=== PATIENT | female | born 1985 | race Caucasian/White ===

== ENCOUNTER → 2024-06-06 07:52 | Outpatient (REF) | payer BC, SELFPAY | LOC: PNTC 07:52 | PROVIDERS: ATTENDING PHYSICIAN Obstetrics & Gynecology | DX: O09.529 Supervision of elderly multigravida, unspecified trimester (principal) | CPT/HCPCS: 76805; 93976 ==

== ENCOUNTER → 2024-07-03 10:54 | Outpatient (REF) | payer BC, SELFPAY | LOC: PNTC 10:54 | PROVIDERS: ATTENDING PHYSICIAN Obstetrics & Gynecology | DX: O09.529 Supervision of elderly multigravida, unspecified trimester (principal); O43.219 Placenta accreta, unspecified trimester | CPT/HCPCS: 76811; 93976 ==

== ENCOUNTER → 2024-08-07 10:16 | Outpatient (REF) | payer BC, SELFPAY | LOC: PNTC 10:16 | PROVIDERS: ATTENDING PHYSICIAN Obstetrics & Gynecology | DX: O09.519 Supervision of elderly primigravida, unspecified trimester (principal) | CPT/HCPCS: 76816; 93976 ==

== ENCOUNTER → 2024-10-02 08:00 | Outpatient (REF) | payer BC, SELFPAY | LOC: PNTC 08:00 | PROVIDERS: ATTENDING PHYSICIAN Obstetrics & Gynecology | DX: O09.529 Supervision of elderly multigravida, unspecified trimester (principal); O43.219 Placenta accreta, unspecified trimester | CPT/HCPCS: 76816; 93976 ==

== ENCOUNTER 2024-10-28 21:14 | Inpatient (IN) | payer BC, SELFPAY ==
[2024-10-28 21:35] VITALS: BP 112/59
[2024-10-28 21:41] LABS: Hematocrit 33.2 % (37.0-47.0); Hemoglobin 11.6 g/dL (12.0-16.0); Mean Corp Hgb Conc. 34.9 g/dL (33.0-37.0); Mean Corpuscular Hgb 30.1 pg (27.0-31.0); Mean Platelet Volume 10.4 fL (7.4-10.4); Platelet Count 249 10^3/uL (130-400); Red Blood Cell Count 3.86 10^6/uL (4.20-5.40); Red Cell Dist. Width 13.8 % (11.5-14.5); White Blood Cell Count 16.8 10^3/uL (4.8-10.8)
[2024-10-28] MEDS: LR 1000 IV (21:45)
--- NOTE | 2024-10-28 22:07 | HPS.HSE ---
Family Physician
-
Family Physician: Isabela Barron
Chief Complaint
-
leakage of fluid
History of Present Illness
Patient is a 39yo @36.5 who presents with complaints of leakage of fluid at 1915. She reports contractions starting after every 5 minutes.
complications:
- Advanced maternal age
- Obesity BMI 31
- Hx C/Sx1, desires repeat
- Desires permanent sterilization
PMHx: migraines, IBS
Meds: PNV
Surghx: C/Sx1
NKDA
Socialhx: denies tobacco, etoh or illicit drug use
Famhx: non-contributory
OBHx: C/Sx1, SABx1
labs: O+, Ab neg, Rubella immune, RPR non-reactive, UCx neg, HBsAg neg, HIV neg, GCCT neg, Hep C neg, A1C 5.5, GBS neg, 1hr 128
FHT: 140 baseline/moderate variability/+accelerations/no decelerations
[place]: ctx q2-10 min
Medical History
Past Medical History
Past Medical History: Reports Other
Additional Past Medical History:
migraines, IBS
Past Surgical History: Reports
Social History
Tobacco: Non-smoker
Alcohol: None
Drug: None
Family History
Family History: Not pertinent
Allergies / Home Medications
Allergies reflects when Allergies were last updated in [employer].
Home Medications with original date entered in [employer]
Allergy/Medication List:
NKDA
Meds: PNV
Review of Systems
-
A 12 point ROS was completed and negative except as noted: Yes
Physical Exam
Vital Signs
Vital Signs
Temp Pulse Resp BP Pulse Ox
98.9 F 90 18 112/59 99
05/25 21:35 10/28/24 21:35 10/28/24 21:35 10/28/24 21:35 10/28/24 21:35
Physical Exam
General: Well Developed and Well Nourished
HEENT: NormoCephalic
Respiratory: Non Labored Respirations
Cardiac: Regular Rhythm
GI: Other (gravid)
Genito-urinary: Other (grossly ruptured for clear fluid)
Skin: Warm and Dry
Neuro: Awake and Alert
Psych: Calm
Laboratory Results
-
10/28/24 21:35
Impression/Plan
-
IMPRESSION:
Patient is a 39yo @36.5 SROM, history of prior section, declines TOLAC, desires permanent sterilization
PLAN:
- Admission labs
- Patient declines TOLAC and desires RCS. Risks, benefits and alternatives discussed including bleeding, infection, damage to surrounding structures and need for future operations. Consents signed. Patient consented for blood transfusion
- Patient has completed her family status and desires permanent sterilization. Patient consented for bilateral salpingectomy. She is aware it will not performed if there is too much scar tissue. She is also aware it is a permanent procedure and she
will no longer be able to conceive children naturally
- 2g ancef and 500mg azithromycin ordered for antibiotic prophylaxis
- Anesthesia notified
[2024-10-28] MEDS: TYLENOL 1000 MG PO (22:23)
[2024-10-28] MEDS: ZITHROMAX INFUSION 250 IV (22:23)
[2024-10-28] MEDS: ANCEF 10 IV (22:23)
[2024-10-28] MEDS: BICITRA 30 ML PO (22:23)
[2024-10-29 01:56] VITALS: BP 112/80; BP 118/78
[2024-10-29 02:11] VITALS: BP 117/59
[2024-10-29 02:15] VITALS: BP 122/65
[2024-10-29] MEDS: DILAUDID 0.25 MG IV (02:17)
--- NOTE | 2024-10-29 02:26 | OR.RPT ---
Operative Report
Operative Report
Procedure date: 10/28/2024
Preop diagnosis: IUP @36.5, PPROM, prior C/Sx1, declines TOLAC, desires permanent sterilization
Postop diagnosis: same
Surgeon: Elizabeth
Procedure: Repeat low transverse section/bilateral salpingectomy
QBL: 765mL
Anesthesia: spinal/general- Dr. Breen
Findings: Viable female infant born at 2308, with Apgars 8/8. Normal appearing bilateral fallopian tubes and ovaries. Paratubal cyst on left ovary. Pooling of blood in the abdomen after replacement of the uterus. Uterus exteriorized and replaced
multiple times to identify source of bleeding. Hysterotomy and bilateral salpingectomy sites were hemostatic. Dr. Du called in to assist with bleeding. Patient was placed under general anesthesia as she was starting to get uncomfortable and to
allow patient to relax for better visualization. Area from the posterior left rectus muscle was bleeding and controlled with Bovie and figure of eights with 0 Vicryl. There was also an area inferior to the hysterotomy that was oozing and controlled
with figure of eights with 4-0 Vicryl. Bovie cautery was used on the vesicouterine serosa to help control bleeding. The bladder was back filled with methylene blue and was intact. Placenta and bilateral fallopian tubes sent to pathology. Patient
given 1g TXA at the conclusion of the procedure. Plan to check CBC @0600.
Ahumada catheter draining clear urine before the procedure and blue tinged urine after the procedure
Indication: Patient is a 39yo @36.5 who presented to labor and delivery with complaints of leakage of fluid. She was found to be grossly ruptured for clear fluid. She has a history of one prior section and declined TOLAC. She has
completed her family status and desires permanent sterilization. She is aware it is a permanent procedure and she will no longer be able to conceive children naturally. Risks, benefits, and alternatives were discussed and consents were signed.
Procedure: Patient was taken to the operating room where spinal anesthesia was administered and found to be adequate. 2g of Ancef and 500mg Azithromycin were given for infection prophylaxis. The abdomen was prepped with ChloraPrep. The patient was
draped in the normal sterile fashion. She was placed in the dorsal supine position with a left lateral tilt. A Pfannenstiel incision was made with a 10 blade and carried down to the fascia with a scalpel. Hemostasis achieved with Bovie. The fascia
was incised and dissected laterally with Woodall scissors. The superior aspect of the fascia was grasped with Christopher clamps. The underlying rectus fascia was sharply dissected with Woodall scissors. In a similar fashion the inferior aspect of the fascia
was elevated with Christopher clamps and the rectus muscle was dissected off with Woodall scissors. The rectus muscles were down the midline to the level of the pubic symphysis with manual dissection. The peritoneum was bluntly entered and
extended with manual traction.
Kelly retractor and bladder blade were placed revealing good visualization of the bladder. The vesicouterine peritoneum was identified. A thin lower uterine segment was noted. The lower uterine segment was incised with a scalpel. Clear amniotic
fluid noted at entry into the cavity. The uterine incision was extended bluntly with lateral and upward traction.
The fetus was in cephalic presentation. The head was brought to the hysterotomy. Gentle fundal pressure was applied and the head delivered. The rest of the body delivered without difficulty. Delayed cord clamping was performed. The infant was
handed off to the teletype or varitype keyboard operator. Cord blood and cord blood collection kit were collected. IV oxytocin was started to facilitate uterine contractions. The placenta was extracted with fundal massage and gentle traction. The uterus was exteriorized.
Allis clamps were placed at the apices of the hysterotomy. The inside of the uterus was wiped with a lap sponge to assure complete removal of placental membranes. Fundal massage was performed and uterus noted to be firm. The uterine incision was
closed with 0 Vicryl in a running locked fashion. A horizontal imbricating stitch was done on the hysterotomy. There was oozing from the center of the hysterotomy. Multiple figure of eights were placed to achieve hemostasis. The hysterotomy was
inspected and noted to be hemostatic. Attention was turned to the right fallopian tube. The right fallopian tube was followed out to the fimbriated end with [place]. The fallopian tube was removed in a stepwise fashion along the mesosalpinx using
the Voyant device. Hemostasis was noted at the salpingectomy site. The procedure was repeated on the left side and the left fallopian tube was removed using the Voyant device. Fallopian tubes were sent to pathology for evaluation. The uterus was
placed back in the abdomen. Blood clots and fluid were wiped out of the abdomen and pelvis with moist laparotomy sponges. The salpingectomy sites were inspected and noted to be hemostatic. The hysterotomy was examined again and was hemostatic.There
was pooling of bright red blood in front of the hysterotomy. When this was wiped away, it appeared the hysterotomy was hemostatic. The uterus was exteriorized again. Fluid and blood were removed from the posterior cul de sac. The posterior uterus
was inspected and no areas of bleeding noted. The gutters were also hemostatic. The uterus was placed back in the abdomen and there was pooling noted again. The rectus muscle was inspected and any oozing areas were cauterized with the Bovie. There
still appeared to be pooling of blood with no clear source of bleeding. Dr. Du was called in to assist. The patient was starting the get uncomfortable and was placed under general anesthesia. The uterus was exteriorized again and was
hemostatic. The salpingectomy sites were hemostatic. The uterus was placed back in the abdomen. An area of bleeding was noted on the posterior aspect of the left rectus muscle. Figure of eights were placed with 0 Vicryl to achieve hemostasis. It
appeared that the hysterotomy had also started oozing. A running locked stitch was placed to achieve hemostasis. There was also an area inferior to the hysterotomy that was raw appearing and oozing. Figure of eights with 4-0 Vicryl were placed.
Oozing on the vesicouterine peritoneum was controlled with Bovie cautery. The bladder was backfilled with methylene blue and was intact. The hysterotomy and abdomen were watched for several minutes and there appeared to be no further pooling of
blood.
The rectus muscles were inspected and any oozing areas were cauterized with the Bovie. The fascial layer was closed in a running continuous fashion using 0 Vicryl. The subcutaneous tissue was copiously irrigated and any small bleeding vessels were
cauterized with Bovie cautery. The subcutaneous tissue was reapproximated in a running continuous fashion with 2-0 Plain. The skin was closed with 4-0 Vicryl in a subcuticular fashion. The incision was covered with skin glue. The patient tolerated
the procedure well. Her vital signs were stable throughout the procedure. All sponge and instrument counts were correct times two. The patient was awakened from anesthesia and taken to PACU in stable condition. The procedure was discussed with the
at the conclusion. Plan to check CBC @0600.
[2024-10-29 02:30] VITALS: BP 120/64
[2024-10-29 02:39] VITALS: BP 107/58
[2024-10-29] MEDS: TORADOL 15 MG IV ×4 (05:47→23:58)
[2024-10-29 08:32] LABS: Hematocrit 31.1 % (37.0-47.0); Hemoglobin 10.8 g/dL (12.0-16.0); Mean Corp Hgb Conc. 34.7 g/dL (33.0-37.0); Mean Corpuscular Hgb 30.3 pg (27.0-31.0); Mean Corpuscular Volume 87.4 fL (81.0-99.0); Mean Platelet Volume 10.3 fL (7.4-10.4); Platelet Count 222 10^3/uL (130-400); Red Blood Cell Count 3.56 10^6/uL (4.20-5.40); Red Cell Dist. Width 13.7 % (11.5-14.5); White Blood Cell Count 23.6 10^3/uL (4.8-10.8)
[2024-10-29] MEDS: PRENATAL PLUS 1 TABLET PO (11:53)
--- NOTE | 2024-10-29 13:26 | W.PN.ANS.POP ---
Anesthesia Post Operative
- Anesthesia Post Op Note
Vital Signs Stable-See Nursing Note: Yes
Airway Patent: Yes
Adequate Pain Control: Yes
Change in Mental Status: No
Current Postoperative Nausea & Vomiting: No
Anesthesia Complications: No
General Anesthetic Recall: No
Unplanned Admission: No
Post Op Hydration Adequate: Yes
[2024-10-29] MEDS: TYLENOL 650 MG PO (20:40)
[2024-10-29] MEDS: MYLICON 80 MG PO (21:55)
[2024-10-29] MEDS: FLUSH (NSS) 3 FLUSH IV (23:59)
[2024-10-30] MEDS: TYLENOL 650 MG PO (00:40)
[2024-10-30] MEDS: MOTRIN 600 MG PO ×3 (06:20→19:54)
[2024-10-30] MEDS: PERCOCET 5/325 1 TABLET PO ×3 (06:21→19:53)
[2024-10-30 06:33] LABS: Hematocrit 30.4 % (37.0-47.0); Hemoglobin 10.2 g/dL (12.0-16.0); Mean Corp Hgb Conc. 33.6 g/dL (33.0-37.0); Mean Corpuscular Hgb 29.8 pg (27.0-31.0); Mean Corpuscular Volume 88.9 fL (81.0-99.0); Mean Platelet Volume 10.1 fL (7.4-10.4); Platelet Count 242 10^3/uL (130-400); Red Blood Cell Count 3.42 10^6/uL (4.20-5.40); Red Cell Dist. Width 14.2 % (11.5-14.5); White Blood Cell Count 14.4 10^3/uL (4.8-10.8)
[2024-10-30] MEDS: PRENATAL PLUS 1 TABLET PO (08:03)
[2024-10-30] MEDS: MYLICON 80 MG PO (08:03)
[2024-10-31] MEDS: PERCOCET 5/325 1 TABLET PO ×2 (02:19→08:57)
[2024-10-31] MEDS: MOTRIN 600 MG PO ×2 (02:19→08:52)
[2024-10-31] MEDS: SENOKOT-S 1 TABLET PO (08:52)
[2024-10-31] MEDS: PRENATAL PLUS 1 TABLET PO (08:52)
--- NOTE | 2024-10-31 08:57 | W.DS.TRANS ---
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
-
Discharge Instructions:
Discharge Diagnosis/Procedures section and bilateral salpingectomies
Instructions:
Stand-Alone Forms: LDRP Delivery
Changes to Home Medications: No
Discharge Medications:
DC Medications w/original date entered in [employer]
vits no.124-ferrous fum 27 mg iron-folic acid 800 mcg tablet ( Vitamin) 1 tab PO DAILY 10/28/24
acetaminophen 325 mg tablet 650 mg (2 x 325 mg) PO Q4HPRN PRN mild pain #0 tabs 10/31/24
ibuprofen 600 mg tablet 600 mg PO Q6HPRN PRN cramps #30 tabs 10/31/24
oxycodone-acetaminophen 5 mg-325 mg tablet 1 tab PO Q4HPRN PRN moderate pain #10 tabs 10/31/24
sennosides 8.6 mg-docusate sodium 50 mg tablet 1 tab PO DAILYPRN PRN constipation #0 tabs 10/31/24
simethicone 80 mg chewable tablet 80 mg PO TIDPRN PRN flatulence #0 tabs 10/31/24
Home Medication Changes
Pending Results: Yes
Additional Pending Results:
pathology on salpingectomies
Total time spent discharging patient (in min): 20
[2024-10-31 12:03] LABS: Syphilis/T. pallidum Ab Reflex Negative (Negative)
== END 2024-10-31 11:39 | disposition home or self-care (01) | DRG 784 ==
LOC: LDRP 21:14
PROVIDERS: ADMITTING PHYSICIAN Student in an Organized Health Care Education/Training Program; FAMILY PHYSICIAN Internal Medicine
PROC: 0UT70ZZ Resection of Bilateral Fallopian Tubes, Open Approach (ICD-10-PCS; 2024-10-29)
PROC: 10D00Z1 Extraction of Products of Conception, Low, Open Approach (ICD-10-PCS; 2024-10-29)
DX: O34.211 Maternal care for low transverse scar from previous cesarean delivery (principal); D62 Acute posthemorrhagic anemia; Z3A.36 36 weeks gestation of pregnancy; Z37.0 Single live birth; O69.81X0 Labor and delivery complicated by cord around neck, without compression, not applicable or unspecified; O90.81 Anemia of the puerperium; O42.913 Preterm premature rupture of membranes, unspecified as to length of time between rupture and onset of labor, third trimester; Z30.2 Encounter for sterilization
CPT/HCPCS: 88302; 88307; 85027; 86780; 86850; 86900; 86901

== ENCOUNTER 2025-06-09 21:46 | Emergency (ER) | payer BC, SELFPAY ==
[2025-06-09 21:56] VITALS: BP 116/79
[2025-06-09 22:26] LABS: Urine Character Clear (Clear)
[2025-06-09 22:34] LABS: Urine Squamous Cell >30 /LPF (Few)
[2025-06-09 22:35] LABS: Urine White Cell 0-2 /HPF (0-5)
[2025-06-09 22:48] LABS: Hematocrit 36.1 % (37.0-47.0); Hemoglobin 12.6 g/dL (12.0-16.0); Mean Corp Hgb Conc. 34.9 g/dL (33.0-37.0); Mean Corpuscular Volume 81.9 fL (81.0-99.0); Nucleated Red Blood Cells % 0 %; Platelet Count 239 10^3/uL (130-400); Red Cell Dist. Width 12.1 % (11.5-14.5)
[2025-06-09 23:02] LABS: ALT (SGPT) 27 U/L (0-35); AST (SGOT) 23 U/L (14-36); Albumin 4.7 g/dl (3.5-5.0); Alkaline Phosphatase 70 U/L (38-126); Blood Urea Nitrogen 9 mg/dl (7-17); Calcium 8.6 mg/dl (8.4-10.2); Carbon Dioxide 20 mmol/L (22-30); Chloride 102 mmol/L (98-107); Glucose 103 mg/dl (70-99); Lipase 57 U/L (23-300); Potassium 3.6 mmol/L (3.5-5.1); Sodium 134 mmol/L (135-145); Total Protein 7.8 g/dl (6.3-8.2); eGFR > 60.00
--- NOTE | 2025-06-10 03:21 | ED.GENMED ---
History of Present Illness
General
Chief Complaint: Abdominal Pain
Source: patient
Exam Limitations: none
Time Seen by Provider: 06/10/25 03:09
Nursing documentation reviewed up to this point in time: agreed with
History of Present Illness
History of Present Illness:
HISTORY OF PRESENT ILLNESS
The patient is a 39-year-old female presenting with severe upper abdominal pain that started on . She describes the pain as something she has never experienced before and rates it as causing significant discomfort. The patient also reports
diarrhea and vomiting that initiated on the same day. She was evaluated at urgent care this evening, referred to the ER for further evaluation. Vomiting has improved over the past 24 hours, only 1 episode of vomiting. She did pass 4 loose stools
over the past 24 hours. She denies hematemesis nor hematochezia. The patient notes that the pain worsens with eating or drinking. No close contacts with similar symptoms. No recent travel nor recent antibiotic use.
She has a past medical history of gastric ulcers, as confirmed by an endoscopy a number of years ago. She denies dysuria or increased frequency of urination.
She is currently nursing her 7-month-old at home. Denies risk of .
She has not had URI symptoms. No cough no chest pain or shortness of breath. She has not had a fever and or chills. COVID and influenza testing at urgent care were negative.
Past History
Past History
ED Past Medical History: Other (Peptic ulcer disease)
ED Past Surgical History:
Social History
Tobacco: Non-smoker
Alcohol: None
Drug: None
Personal:
Living: with family
Family History
Family History: Other (Noncontributory)
Phy Exam
Physical Exam
Physical Exam:
GENERAL: 39-year-old female appears her stated age, awake and alert, pleasant, appears in no acute distress. Questionable low-grade fever noted on triage vital signs. Patient denies fever. She is afebrile upon my evaluation.
EYE: anicteric
NECK: Supple, nontender, no meningismus, no significant adenopathy.
ENT: oral mucosa is moist. No rhinorrhea.
CARDIAC: Regular rate and rhythm. no murmur.
LUNGS: Clear breath sounds bilaterally, no acute respiratory distress, no wheezes/rales/rhonchi
ABDOMEN: Soft, nondistended, without focal tenderness, no r/g, no cvat. normoactive BS.
NEUROLOGICAL: Alert and oriented x3, no focal neuro deficits. Gait is steady.
SKIN: Warm and dry, normal color, skin intact. No rash.
MUSCULOSKELETAL: No C/C/E. peripheral pulses are full and equal b/l. No palpable tenderness.
PSYCH: Normal and appropriate interaction.
Course
Orders/Labs/Results
Orders:
Orders
06/09/25 22:02
CONSULT Urgent
Comment: ED visit
06/09/25 22:03
IV Insert/Care/Rem.- Treatment PRN
06/09/25 22:20
Urinalysis Reflex To Culture Urgent
Date Specimen was Collected: 06/09/25
Time Specimen was Collected: 22:03
Urine Microscopic Reflex Cult Urgent
06/09/25 22:33
Complete Blood Count/With Diff Urgent
Comprehensive Metabolic Panel Urgent
Lipase Urgent
06/09/25 22:45
US Abdomen Complete/Upper Urgent
Reason For Exam: abd pain r/o gallstaones
Abnormal Lab Results
06/09/25 06/09/25
22:20 22:33
Hct 36.1 L %
(37.0-47.0)
Absolute Lymphs (auto) 0.7 L 10^3/uL
(1.2-3.4)
Neutrophils % 81.1 H %
(42.2-75.2)
Lymphocytes % 8.8 L %
(20.5-51.1)
Sodium 134 L mmol/L
(135-145)
Carbon Dioxide 20 L mmol/L
(22-30)
Creatinine 0.5 L mg/dL
(0.6-1.0)
Glucose 103 H mg/dl
(70-99)
Ur Occult Blood Reflex 3+ A
(Negative)
Urine RBC 3-6 A /HPF
(0-2)
Urine Bacteria (Reflex) Few A
(Negative)
06/09/25 22:33
06/09/25 22:33
Vital Signs
Temp: 97.9 F
Initial and Last Documented VS:
Initial Vital Signs
Temp Pulse Resp BP Pulse Ox
100.1 F 93 20 116/79 97
06/09/25 21:56 06/09/25 21:56 06/09/25 21:56 06/09/25 21:56 06/09/25 21:56
Last Documented Vital Signs
Temp Pulse Resp BP Pulse Ox
97.9 F 93 20 116/79 97
06/10/25 03:22 06/09/25 21:56 06/09/25 21:56 06/09/25 21:56 06/10/25 03:22
MDM/Problems Addressed
Differential Diagnosis Includes:
DIFFERENTIAL DIAGNOSIS
The Differential Diagnosis includes, in no particular order and is not limited to:
1. Gastroenteritis
2. Peptic ulcer disease exacerbation
3. Gallbladder pathology
4. Kidney stone
5. Foodborne illness
6. Viral infection
7. Irritable bowel syndrome
8. Gastric ulcer
9. Pancreatitis
10. Appendicitis
MDM/Problems Addressed:
2-1/2-day history of acute upper abdominal pain accompanied with nausea, vomiting, diarrhea.
Overall well in appearance. Abdomen is soft without appreciable tenderness.
Labs are reassuring, within normal limits.
Urinalysis has 3-6 RBCs, few bacteria but negative WBCs.
Abdominal ultrasound shows no evidence of cholelithiasis nor acute cholecystitis. Normal common bile duct at 4 mm. Questionable nonobstructive stone left kidney, no hydronephrosis in either kidney. Unremarkable spleen and visualized pancreas.
History and exam most consistent with acute gastroenteritis either viral versus foodborne. She does have history of gastritis and must consider an element of gastritis even peptic ulcer disease but generally gastritis/peptic ulcer disease is not
accompanied with acute diarrhea. There is nothing in history nor exam to suggest GI bleed.
Recommend supportive measures, limiting diet to clear liquids today, slowly advance to soft bland foods thereafter.
Will trial oral fluids now.
Will prescribe Zofran for as needed nausea as well as a short course of Pepcid for coverage of potential gastritis/peptic ulcer disease.
Recommend [id number] Imodium for as needed diarrhea.
Prompt follow-up with PCP for recheck.
Return precautions discussed.
Chronic conditions affecting care:
Prior history of gastritis/peptic ulcer disease
Chronic conditions affecting care: Previous abdomnial surgery and Other (Prior history of gastritis/peptic ulcer disease)
*Radiology
Radiology exam reviewed: radiology read reviewed
*Pulse Oximetry
SaO2: 97
Oxygen Mode of Delivery: Room air
Patient hypoxic: no
*Critical Care Note
Total Time (30-74mins, 75-104mins- exclusive of procedures): Not Applicable
ED Attending Note
-
Portions of this chart may have been created with voice recognition software.� Occasional wrong word or��sound alike� substitutions may have occurred due to the inherent limitations of voice recognition software.
Discharge Plan
Departure
Patient Disposition: Home (Routine Discharge)
Date of Disposition: 06/10/25
Time of Disposition: 03:24
Patient with high blood pressure during this ER visit?: No
Condition: Good
Discharge Problem:
Acute gastroenteritis, Acute gastritis
Instructions: Gastritis, Viral gastroenteritis in adults, Clear Liquid Diet
Prescriptions:
New
ondansetron 4 mg tablet,disintegrating
4 mg PO QID PRN (Reason: nausea and vomiting) Qty: 20 0RF
famotidine [Pepcid] 40 mg tablet
40 mg PO DAILY Qty: 30 0RF
No Action
Vitamin 27 mg iron- 800 mcg Tablet
1 tab PO DAILY
acetaminophen 325 mg Tablet
650 mg PO Q4HPRN PRN (Reason: mild pain) Qty: 0 0RF
sennosides-docusate sodium 8.6-50 mg Tablet
1 tab PO DAILYPRN PRN (Reason: constipation) Qty: 0 0RF
oxycodone-acetaminophen 5-325 mg Tablet
1 tab PO Q4HPRN PRN (Reason: moderate pain) Qty: 10 0RF
ibuprofen 600 mg Tablet
600 mg PO Q6HPRN PRN (Reason: cramps) Qty: 30 0RF
simethicone 80 mg Tablet,Chewable
80 mg PO TIDPRN PRN (Reason: flatulence) Qty: 0 0RF
Referrals:
Isabela Barron MD [Family Provider, Internal Medicine] - Call in 1-3 days for appt
Activity Restrictions/Additional Instructions:
Limit your diet to clear liquids today. If nausea and vomiting have improved and you are hungry, you may advance to soft, bland foods later this afternoon/evening.
For diarrhea, you can take [id number] Imodium 1 to 2 tablets 4 times daily as needed for loose stool.
You have been prescribed Zofran and ODT to take 4 times daily as needed for nausea.
You have also been prescribed Pepcid 40 mg to take once daily for potential gastritis.
Prompt follow-up with your primary care physician this week or next week for recheck.
If symptoms worsen, if you develop a fever, severe abdominal pain, intractable vomiting or diarrhea, prompt return to the ER for further evaluation.
Interventions
Interventions:
*General Assessment Last Done: 06/09/25 21:56
*Neglect/Abuse Screening Last Done: 06/09/25 21:56
*ED COVID-19 Vaccine History Last Done: 06/09/25 21:56
*ED Influenza Vaccine History Last Done: 06/09/25 21:56
[facility] Fall Risk Assessment Tool Last Done: 06/10/25 02:00
EN-Rmgtiu-Piqjrmkmbs Assessment Last Done: 06/10/25 02:00
Discharge Date and Time
Print Language: SETSWANA
[2025-06-10] MEDS: PEPCID 20 MG IV (03:45)
[2025-06-10 04:00] VITALS: BP 113/66
== END 2025-06-10 04:07 | disposition home or self-care (01) ==
LOC: EMR 21:46
PROVIDERS: Emergency Medicine; EMERGENCY PHYSICIAN Emergency Medicine; FAMILY PHYSICIAN Internal Medicine
DX: K52.9 Noninfective gastroenteritis and colitis, unspecified (principal); K29.00 Acute gastritis without bleeding; Z87.11 Personal history of peptic ulcer disease
CPT/HCPCS: 96374; 99284; 76700; 80053; 81003; 81015; 83690; 85025